=== PATIENT | female | born 1970 | race Asian ===

== ENCOUNTER 2024-01-14 20:13 | Emergency (ER) | payer SELFPAY ==
[~2024-01-14] VITALS: Ht 167.6 cm; Wt 89.4 kg
[2024-01-14] MEDS ORDERED: HYDROCODONE/APAP 10-325 MG TABLET ONE (20:55)
[2024-01-14] MEDS ORDERED: ONDANSETRON ODT 4 MG TAB.RAPDIS ONE (20:55)
[2024-01-14] MEDS: HYDROCODONE/APAP 10-325 MG TABLET PO ONE (21:00)
[2024-01-14] MEDS: ONDANSETRON ODT 4 MG TAB.RAPDIS SL ONE (21:00)
[2024-01-14] MEDS ORDERED: HYDROMORPHONE 1 MG/1 ML DISP.SYRIN ONE (21:15)
[2024-01-14] MEDS: HYDROMORPHONE 1 MG/1 ML DISP.SYRIN IM ONE (21:25)
[2024-01-14] MEDS ORDERED: diphenhydrAMINE 50 MG CAPSULE ONE (21:52)
[2024-01-14] MEDS: diphenhydrAMINE 50 MG CAPSULE PO ONE (21:56)
[2024-01-14] MEDS ORDERED: HYDR-3980 PO (21:59)
[2024-01-14] MEDS ORDERED: ONDA4TAB11 PO (21:59)
[2024-01-14 22:08] VITALS: BP 134/74; TEMP 97.8; O2SAT 97
== END 2024-01-14 22:05 | disposition left against medical advice (07) ==
LOC: ER 20:15
DX: S09.8XXA Other specified injuries of head, initial encounter (principal); Z86.73 Personal history of transient ischemic attack (TIA), and cerebral infarction without residual deficits; W01.0XXA Fall on same level from slipping, tripping and stumbling without subsequent striking against object, initial encounter; Y93.89 Activity, other specified; Y92.89 Other specified places as the place of occurrence of the external cause; Y99.8 Other external cause status
CPT/HCPCS: 99285; 70450; 72131; 96372; Q0163; J1171; A4606; A4663; Q0162